=== PATIENT | male | born 1980 | race Caucasian/White ===

== ENCOUNTER 2023-06-04 21:11 | Emergency (ER) | payer OTHER ==
[~2023-06-04] VITALS: Ht 170.2 cm; Wt 77.1 kg
[2023-06-04 21:30] VITALS: BP_SYST 138; PULSE 124; RESP 21; TEMP 98.2; O2SAT 96
[2023-06-05 00:59] VITALS: BP_SYST 138; PULSE 124; RESP 21; TEMP 98.2; O2SAT 96
== END 2023-06-05 00:59 | disposition left against medical advice (07) ==
LOC: SED 21:11
DX: R00.2 Palpitations (principal); Z53.21 Procedure and treatment not carried out due to patient leaving prior to being seen by health care provider
CPT/HCPCS: 93005; 99281